=== PATIENT | female | born 1975 | race Caucasian/White ===

== ENCOUNTER 2023-03-27 01:37 | Emergency (ER) | payer BC ==
[~2023-03-27] VITALS: Ht 177.8 cm; Wt 105.6 kg
[~2023-03-27 01:37] MED LIST: ALPR1 PO; BUSP10 PO; CARI350 PO; Cyclobenzaprine5 MG PO; DICY20 PO; ESOM20 PO; HYDR1TAB94 PO; LISI5 PO; NAPR500EC PO; PROM25 PO; ROPI1 PO; SERT100 PO; SERT25 MT; TRAZ100 PO; [UNRECOGNIZED DRUG - OTHER]; [UNRECOGNIZED DRUG - OTHER]
[2023-03-27] MEDS ORDERED: Aspir 8181 MG PO (02:20)
[2023-03-27] MEDS ORDERED: OMEP20ER PO (02:21)
[2023-03-27] MEDS ORDERED: METO50ER PO (02:21)
[2023-03-27] MEDS ORDERED: FURO40 PO (02:21)
[2023-03-27] MEDS ORDERED: BUSPIRONE HCL7.5 M1 PO (02:21)
[2023-03-27] MEDS ORDERED: POTCHL20ER PO (02:21)
[2023-03-27] MEDS ORDERED: Robaxin750 MG (02:21)
[2023-03-27] MEDS ORDERED: NURTEC ODT75 MG PO (02:22)
[2023-03-27] MEDS ORDERED: TOPI50 PO (02:22)
[2023-03-27] MEDS ORDERED: PRAM.5 (02:22)
[2023-03-27] MEDS ORDERED: QUET300 PO (02:22)
[2023-03-27] MEDS ORDERED: SPIR25 (02:23)
[2023-03-27] MEDS ORDERED: TRIAMTERENE-HCTZ (02:23)
[2023-03-27 04:05] VITALS: BP 135/81
== END 2023-03-27 04:05 | disposition home or self-care (01) ==
LOC: ER 01:37
DX: R60.0 Localized edema (principal); G43.909 Migraine, unspecified, not intractable, without status migrainosus; I10 Essential (primary) hypertension; F17.200 Nicotine dependence, unspecified, uncomplicated
CPT/HCPCS: 93970; 99284-25